=== PATIENT | female | born 1985 | race Caucasian/White ===

== ENCOUNTER 2017-01-28 06:25 | Inpatient (IN) | payer BC, OTHER ==
[2017-01-28] VITALS (48 sets, daily range): BP systolic 90–133; BP diastolic 43–79; PULSE 71–138; RESP 16–18; TEMP 97.8–98.2
[~2017-01-28] VITALS: Ht 152.4 cm; Wt 78.0 kg
[~2017-01-28 06:25] MED LIST: DARV PO; PREN0.01 PO
[2017-01-28] MEDS ORDERED: ONDANSETRON HCL 4 MG/2 ML VIAL IV PUSH PRN (07:45)
[2017-01-28] MEDS ORDERED: CITRIC ACID-SODIUM CITRATE LIQ 30 ML UDC PO SCH (07:45)
[2017-01-28] MEDS ORDERED: SODIUM CHLORID 0.9% 500 ML INJ 500 ML IV PRN (07:45)
[2017-01-28] MEDS ORDERED: MINERAL OIL 10 ML VIAL TOPICAL PRN (07:45)
[2017-01-28] MEDS ORDERED: LIDOCAINE HCL 1% 50 ML VIAL INFIL PRN (07:45)
[2017-01-28] MEDS ORDERED: LACTATED RINGER'S 1000 ML INJ 1,000 ML IV PRN (07:45)
[2017-01-28] MEDS ORDERED: LIDOCAINE HCL 1% 50 ML VIAL I-DERMAL PRN (07:45)
[2017-01-28] MEDS: LACTATED RINGER'S 1000 ML INJ 1,000 ML IV SCH ×2 (07:45→15:45)
--- NOTE | 2017-01-28 07:45 | PD ---
HPI Chief Complaint LOF Date Seen: Jan 28, 2017 Time Seen: 07:37 Travel History International Travel<30 Days: No Contact w/Intl Traveler<30Days: No Known Affected Area: No History of Present Illness HPI Pt is a @ 39.3wks. She has PNC with [facility]. She presented to triage this morning reporting SROM overnight. She continues to have leaking. No VB or ctx. +FM. She denies any complications this . She was /-3 in clinic most recently. Para: 1 : 3 History Past Medical History Narrative Medical asthma Obstetric History Obstetric History SABx1 SVDx1 Past Surgical History Narrative Surgical wisdom teeth extraction (general ANES) Family History Narrative Family History father had melanoma Social History Alcohol Use: No Tobacco Use: No Substance Abuse: No Allergies-Medications (Allergen,Severity, Reaction): Coded Allergies: No Known Allergies (Verified , 04/16/08) Home Meds Reported Medications Multivit/Min/Fol Ac/Iron/Pren ( Vit ( Plus)) 27 Mg Iron-1 Mg Tab , 1 TAB PO DAILY, #30 0 Refills 04/16/08 Discontinued Reported Medications Propoxyphene-N/Acetaminophen (Darvocet-N 100) Tab, 1 TAB PO Q4HPRN, #20 0 Refills FOR PAIN 04/19/08 Review of Systems Except as stated in HPI: all other systems reviewed are Neg Physical Exam Narrative GENERAL: Well-nourished, well-developed patient. SKIN: Warm and dry. HEAD: Normocephalic and atraumatic. EYES: No scleral icterus. No injection or drainage. ENT: No nasal drainage noted. Mucous membranes pink. Airway patent. ABDOMEN/GI: Abdomen soft, non-tender, gravid EXTREMITIES: No cyanosis or edema. BACK: Nontender without obvious deformity. No CVA tenderness. NEUROLOGICAL: Awake and alert. Motor and sensory grossly within normal limits. CVX: 2-3/60/-2 FHT: 135, +accels, no decels, moderate variability, reactive TOCO: quiet Data Data Vital Signs Reviewed: Yes Orders Orders Vital Signs (Adult) .ON ADMISSION (01/28/17 07:34) ^ Labor Status (01/28/17 07:34) ^ Non Stress Test (01/28/17 07:34) Pamg-1 Test .ONCE (01/28/17 07:34) Group B Strep: Negative MDM Plan PROM: -- admit to L&D -- pitocin augmentation -- FHT cat 1 -- anticipate -- GBS neg Dr. Wilson (neurosurgical nurse practitioner) notified of pt status and agrees with POC. Courtesy orders placed. She will assume care of the pt. Diagnosis Diagnosis: Primary Impression: Additional Impressions: 39 weeks gestation of PROM (premature rupture of membranes) Asthma Poppy Oliva MD Jan 28, 2017 07:45
[2017-01-28] MEDS ORDERED: SODIUM CHLOR 0.9% 1000 ML INJ 1,000 ML IV PRN (08:05)
[2017-01-28 08:59] LABS: AUTOMATED NEUTROPHIL # 9.5 TH/MM3 (1.8-7.7); BASOPHIL % 0.2 % (0.0-2.0); EOSINOPHIL % 0.1 % (0.0-4.0); HEMO FLAGS DIFF FINAL; LYMPHOCYTE # 2.4 TH/MM3 (1.0-4.8); MEAN CELL VOLUME 86.9 FL (80.0-100.0); MEAN CORPUSCULAR HEMOGLOBIN 29.7 PG (27.0-34.0); MEAN CORPUSCULAR HGB CONC 34.2 % (32.0-36.0); NEUT % 74.7 % (16.0-70.0); PLATELET COUNT 232 TH/MM3 (150-450); RED BLOOD COUNT 4.26 MIL/MM3 (4.00-5.30); RED CELL DISTRIBUTION WIDTH 13.5 % (11.6-17.2); WHITE BLOOD COUNT 12.7 TH/MM3 (4.0-11.0)
[2017-01-28] MEDS ORDERED: OXYTOCIN 30 UNITS-500ML PREMIX 500 ML IV SCH ×2 (09:00→17:30)
[2017-01-28] MEDS ORDERED: OXYTOCIN 30 UNITS-500ML PREMIX 500 ML IV ONE (09:00)
[2017-01-28 12:56] LABS: BLOOD, URINE TRACE (NEG); GLUCOSE,URINE NEG (NEG); KETONE, URINE TRACE mg/dL (NEG); MUCUS URINE FEW /lpf (OCC); NITRITE,URINE NEG (NEG); SQUAMOUS EPITHELIAL CELL URINE 10 /hpf (0-5); URINE COLOR YELLOW (YELLW/STRAW)
[2017-01-28 12:59] LABS: COMMENT (UR) CULT NOT INDICATED; CULTURE IF INDICATED CULT NOT INDICATED
[2017-01-28] MEDS ORDERED: fentaNYL 2MCG-BUPIV 0.125% INJ 100 ML ONE (13:56)
[2017-01-28] MEDS ORDERED: ePHEDrine/NS 25 MG/5 ML SYR IV PUSH PRN (14:45)
[2017-01-28] MEDS ORDERED: DO NOT ADMINISTER ANTICOAGULANTS PRN (15:00)
[2017-01-28] MEDS ORDERED: fentaNYL 2MCG-BUPIV 0.125% 100 ML EPIDURAL SCH (15:00)
[2017-01-28] MEDS ORDERED: NO SYSTEM NARCOTICS PRN (15:00)
[2017-01-28] MEDS ORDERED: MEASLES, MUMPS, RUBELLA VACCINE 0.5 ML VIAL SQ ONE (16:00)
[2017-01-28] MEDS ORDERED: DIPHTH/TETANUS/ACEL PERTUSSIS (BOOSTER) 0.5 ML VIAL/PFS IM ONE (16:00)
--- NOTE | 2017-01-28 17:21 | PD.OB.DELI ---
Weeks gestation: 39 Gest age assessed date: Jan 28, 2017 Gest age assessed time: 00:00 Pt started active labor?: Yes Medical induction of labor?: No Artificial rupture of membrane: No Anesthesia: Epidural Episiotomy: None Vaginal Delivery: Normal Presentation: Occiput anterior Nuchal Cord: None Shoulder Dystocia: Katja maneuver done : Male Delivery date: Jan 28, 2017 Delivery time: 17:00 One Minute : 9 Five Minute : 9 Placenta: Spontaneous delivery Laceration: Vaginal laceration, 1 deg Repair: Vicryl interrupted Estimated blood loss: @250cc Arash Kendrick MD Jan 28, 2017 17:21
[2017-01-28] MEDS ORDERED: BENZOCAINE 20% TOPICAL SPRAY 60 ML CAN TOPICAL PRN (17:30)
[2017-01-28] MEDS ORDERED: DOCUSATE SODIUM 50 MG/SENNA 8.6 MG TAB PO PRN (17:30)
[2017-01-28] MEDS ORDERED: OXYTOCIN 10 UNIT/ML AMP XX PRN (17:30)
[2017-01-28] MEDS ORDERED: ALUMINUM/MAGNESIUM/SIMETH 30 ML CUP PO PRN (17:30)
[2017-01-28] MEDS ORDERED: ACETAMINOPHEN 325 MG TAB PO PRN (17:30)
[2017-01-28] MEDS ORDERED: SODIUM CHLORIDE 0.9% FLUSH 10 ML FLUSH IV FLUSH PRN (17:30)
[2017-01-28] MEDS ORDERED: WITCH HAZEL 50%/GLYCERIN 12.5% 40 PAD JAR TOPICAL PRN (17:30)
[2017-01-28] MEDS ORDERED: ZOLPIDEM TARTRATE 5 MG TAB PO PRN (17:30)
[2017-01-28] MEDS ORDERED: ONDANSETRON ODT 4 MG TAB PO PRN (17:30)
[2017-01-28] MEDS ORDERED: SODIUM CHLORIDE 0.9% FLUSH 10 ML FLUSH IV FLUSH SCH (21:00)
[2017-01-29] MEDS: IBUPROFEN 600 MG TAB PO PRN ×3 (02:54→21:51)
[2017-01-29] MEDS ORDERED: IBUP-232 PO (06:42)
[2017-01-29] MEDS ORDERED: SENN1TAB PO (06:42)
--- NOTE | 2017-01-29 06:43 | HHI.DCPOC ---
Discharge Care Plan Diagnosis: (1) (spontaneous vaginal delivery) Your Health Problems Are: Vaginal delivery Report Symptoms to Your Doctor -Temperature above 100.5 degrees -Redness, of incision or excessive or foul smelling drainage -Unusual pain or calf pain -Increased vaginal bleeding -Painful or difficulty urinating -Feelings of extreme sadness or anxiety after 2 weeks Goals to Promote Your Health * To prevent worsening of your condition and complications * To maintain your health at the optimal level Directions to Meet Your Goals Take your medications as prescribed Follow your dietary instruction Follow activity as directed Ensure plenty of rest for recovery Drink fluids for hydration Keep your appointments as scheduled Take your immunizations and boosters as scheduled If your symptoms worsen call your PCP, if no PCP go to Urgent Care Center or Emergency Room Smoking is Dangerous to Your Health. Avoid second hand smoke Call the 24-hour crisis hotline for domestic abuse at Lelia Wilson MD Jan 29, 2017 06:43
--- NOTE | 2017-01-29 06:51 | HHI.OB ---
Subjective Post Day: 1 Remarks s/p uncomplicated of FT male Objective Vitals/I&O Vital Signs Date Time Temp Pulse Resp B/P (MAP) Pulse Ox O2 Delivery O2 Flow Rate FiO2 01/29/17 03:54 18 01/28/17 20:50 97.9 18 01/28/17 20:50 83 110/63 (79) 01/28/17 19:01 95 91/67 (75) 01/28/17 18:45 92 118/69 (85) 01/28/17 18:39 18 01/28/17 18:30 94 121/75 (90) 01/28/17 18:30 18 01/28/17 18:15 92 103/66 (78) 01/28/17 18:14 16 01/28/17 18:00 138 124/75 (91) 01/28/17 17:46 16 01/28/17 17:45 87 133/66 (88) 01/28/17 17:35 97.8 18 01/28/17 17:31 90 124/65 (84) 01/28/17 17:00 87 108/64 (79) 01/28/17 16:30 81 123/75 (91) 01/28/17 16:00 79 106/63 (77) 01/28/17 15:39 97.9 18 01/28/17 15:37 78 99/60 (73) 01/28/17 15:35 79 95/51 (66) 01/28/17 15:30 85 102/55 (71) 01/28/17 15:25 72 01/28/17 15:20 80 101/50 (67) 01/28/17 15:15 76 104/79 (87) 01/28/17 15:10 133 103/76 (85) 01/28/17 15:06 84 116/65 (82) 01/28/17 15:00 75 112/59 (76) 01/28/17 14:55 85 101/67 (78) 01/28/17 14:50 87 114/64 (81) 01/28/17 14:45 90 120/72 (88) 01/28/17 14:42 16 01/28/17 14:40 88 108/66 (80) 01/28/17 14:37 83 99/54 (69) 01/28/17 14:35 93 90/43 (59) 01/28/17 14:30 91 101/51 (68) 01/28/17 14:25 90 106/59 (75) 01/28/17 14:20 87 01/28/17 14:20 86 117/65 (82) 01/28/17 14:18 83 111/61 (78) 01/28/17 14:17 87 112/66 (81) 01/28/17 14:15 91 01/28/17 14:10 84 01/28/17 14:08 77 118/75 (89) 01/28/17 13:34 82 115/65 (82) 01/28/17 12:30 97.8 01/28/17 12:29 78 108/69 (82) 01/28/17 10:30 18 01/28/17 10:29 73 108/63 (78) 01/28/17 09:49 71 109/77 (88) 01/28/17 09:49 18 01/28/17 09:48 98.2 01/28/17 09:17 78 111/64 (80) Objective Remarks GENERAL: Well-nourished, well-developed patient. CARDIOVASCULAR: Regular rate and rhythm without murmurs, gallops, or rubs. RESPIRATORY: Breath sounds equal bilaterally. No accessory muscle use. ABDOMEN/GI: Abdomen soft, non-tender. Fundus: Firm, non-tender at umbilicus. GENITOURINARY: Light bleeding. EXTREMITIES: No cyanosis or edema, non-tender, without signs of DVT. Medications and IVs Current Medications Medications (Trade) Dose Ordered Sig/Tracy Route Start Time Stop Time Status Last Admin Lactated Ringer's 1,000 ml @ 125 mls/hr Q8H IV 01/28/17 07:45 01/28/17 07:45 Lactated Ringer's 1,000 ml @ 3,000 mls/hr Q20M PRN IV 01/28/17 07:45 Sodium Chloride 500 ml @ 1,000 mls/hr ONCE PRN IV 01/28/17 07:45 01/29/17 07:44 Sodium Chloride 1,000 ml @ 100 mls/hr Q10H PRN IV 01/28/17 08:05 (Xylocaine 1% Inj (50 ml)) 0.1 ml UNSCH X1 PRN I-DERMAL 01/28/17 07:45 01/31/17 07:44 (Bicitra Liq) 30 ml SONAR TECHNICIAN PO 01/28/17 07:45 02/01/17 07:44 (Zofran Inj) 4 mg Q6H PRN IV PUSH 01/28/17 07:45 (fentaNYL INJ) 50 mcg Q1H PRN IV PUSH 01/28/17 07:45 (fentaNYL INJ) 100 mcg Q1H PRN IV PUSH 01/28/17 07:45 (Xylocaine 1% Inj (50 ml)) 10 ml UNSCH X1 PRN INFIL 01/28/17 07:45 01/30/17 07:44 (Muri-Lube Oil) 10 ml UNSCH PRN TOPICAL 01/28/17 07:45 Oxytocin 500 ml @ 0 mls/hr TITRATE IV 01/28/17 09:00 01/28/17 09:12 Miscellaneous Information No systemic narcotics to be given except... UNSCH PRN .XX 01/28/17 15:00 01/29/17 14:59 Miscellaneous Information DO NOT ADMINISTER ANY ANTICOAGUL... UNSCH PRN .XX 01/28/17 15:00 01/29/17 14:59 Fentanyl/ Bupivacaine HCl 100 ml @ 0 mls/hr TITRATE EPIDURAL 01/28/17 15:00 (ePHEDrine/NS 25 MG/5 ML SYR) 10 mg UNSCH PRN IV PUSH 01/28/17 14:45 01/29/17 14:44 (Pitocin Inj) 20 units UNSCH X1 PRN XX 01/28/17 17:30 01/29/17 17:29 (NS Flush) 2 ml BID IV FLUSH 01/28/17 21:00 (NS Flush) 2 ml UNSCH PRN IV FLUSH 01/28/17 17:30 (Tylenol) 650 mg Q4H PRN PO 01/28/17 17:30 (Motrin) 600 mg Q6H PRN PO 01/28/17 17:30 01/29/17 02:54 (Americaine 20% Top Spr) 1 spray Q4H PRN TOPICAL 01/28/17 17:30 01/29/17 02:54 (Tucks Pads) 1 applic QID PRN TOPICAL 01/28/17 17:30 01/29/17 02:54 (Ivania-Colace) 2 tab Q12H PRN PO 01/28/17 17:30 (Ambien) 5 mg HS PRN PO 01/28/17 17:30 (Mag-Al Plus Susp Liq) 15 ml Q8H PRN PO 01/28/17 17:30 (Zofran Odt) 4 mg Q6H PRN PO 01/28/17 17:30 Assessment/Plan Problem List: (1) (spontaneous vaginal delivery) ICD Codes: O80 - Encounter for full-term uncomplicated delivery Status: Acute Assessment and Plan PPD#1 routine supportive care d/c planning for tmrw pt plans to pay for circ today, desires prior to discharge Discharge Planning 01/30/17 Lelia Wilson MD Jan 29, 2017 06:51
[2017-01-29 08:32] VITALS: BP 104/71; PULSE 76; RESP 16; TEMP 97.8
[2017-01-29] MEDS: LACTATED RINGER'S 1000 ML INJ 1,000 ML IV SCH (15:45)
[2017-01-29 21:00] VITALS: BP 114/69; PULSE 81; RESP 18; TEMP 98.7
[2017-01-30 08:00] VITALS: BP 105/66; PULSE 76; RESP 16; TEMP 97.5
--- NOTE | 2017-01-30 08:32 | HHI.OB ---
Subjective Post Day: 2 Remarks parents doing well not first child desire circumcision Objective Vitals/I&O Vital Signs Date Time Temp Pulse Resp B/P (MAP) Pulse Ox O2 Delivery O2 Flow Rate FiO2 01/29/17 22:51 18 01/29/17 21:00 98.7 81 18 114/69 (84) 01/29/17 08:32 97.8 76 16 104/71 (82) Objective Remarks GENERAL: Well-nourished, well-developed patient. CARDIOVASCULAR: Regular rate and rhythm without murmurs, gallops, or rubs. RESPIRATORY: Breath sounds equal bilaterally. No accessory muscle use. ABDOMEN/GI: Abdomen soft, non-tender. Fundus: Firm, non-tender at umbilicus. GENITOURINARY: Light bleeding. EXTREMITIES: No cyanosis or edema, non-tender, without signs of DVT. Medications and IVs Current Medications Medications (Trade) Dose Ordered Sig/Tracy Route Start Time Stop Time Status Last Admin Lactated Ringer's 1,000 ml @ 125 mls/hr Q8H IV 01/28/17 07:45 01/28/17 07:45 Lactated Ringer's 1,000 ml @ 3,000 mls/hr Q20M PRN IV 01/28/17 07:45 Sodium Chloride 1,000 ml @ 100 mls/hr Q10H PRN IV 01/28/17 08:05 (Xylocaine 1% Inj (50 ml)) 0.1 ml UNSCH X1 PRN I-DERMAL 01/28/17 07:45 01/31/17 07:44 (Bicitra Liq) 30 ml MANAGER COLLECTION PO 01/28/17 07:45 02/01/17 07:44 (Zofran Inj) 4 mg Q6H PRN IV PUSH 01/28/17 07:45 (fentaNYL INJ) 50 mcg Q1H PRN IV PUSH 01/28/17 07:45 (fentaNYL INJ) 100 mcg Q1H PRN IV PUSH 01/28/17 07:45 (Muri-Lube Oil) 10 ml UNSCH PRN TOPICAL 01/28/17 07:45 Oxytocin 500 ml @ 0 mls/hr TITRATE IV 01/28/17 09:00 01/28/17 09:12 Fentanyl/ Bupivacaine HCl 100 ml @ 0 mls/hr TITRATE EPIDURAL 01/28/17 15:00 (NS Flush) 2 ml BID IV FLUSH 01/28/17 21:00 (NS Flush) 2 ml UNSCH PRN IV FLUSH 01/28/17 17:30 (Tylenol) 650 mg Q4H PRN PO 01/28/17 17:30 (Motrin) 600 mg Q6H PRN PO 01/28/17 17:30 01/29/17 21:51 (Americaine 20% Top Spr) 1 spray Q4H PRN TOPICAL 01/28/17 17:30 01/29/17 02:54 (Tucks Pads) 1 applic QID PRN TOPICAL 01/28/17 17:30 01/29/17 02:54 (Ivania-Colace) 2 tab Q12H PRN PO 01/28/17 17:30 01/29/17 21:50 (Ambien) 5 mg HS PRN PO 01/28/17 17:30 (Mag-Al Plus Susp Liq) 15 ml Q8H PRN PO 01/28/17 17:30 (Zofran Odt) 4 mg Q6H PRN PO 01/28/17 17:30 Assessment/Plan Problem List: (1) (spontaneous vaginal delivery) ICD Codes: O80 - Encounter for full-term uncomplicated delivery Status: Acute Assessment and Plan PPD#1 routine supportive care d/c planning for tmrw pt plans to pay for circ today, desires prior to discharge PPD2 nursing well no issues counseled on circumcision home today RTO 6 weeks or prn Discharge Planning 01/30/17 Lucrecia Coleman MD Jan 30, 2017 08:32
--- NOTE | 2017-01-30 08:35 | HHI.DCPOC ---
Discharge Care Plan Report Symptoms to Your Doctor -Temperature above 100.5 degrees -Redness, of incision or excessive or foul smelling drainage -Unusual pain or calf pain -Increased vaginal bleeding -Painful or difficulty urinating -Feelings of extreme sadness or anxiety after 2 weeks Goals to Promote Your Health * To prevent worsening of your condition and complications * To maintain your health at the optimal level Directions to Meet Your Goals Take your medications as prescribed Follow your dietary instruction Follow activity as directed Ensure plenty of rest for recovery Drink fluids for hydration Keep your appointments as scheduled Take your immunizations and boosters as scheduled If your symptoms worsen call your PCP, if no PCP go to Urgent Care Center or Emergency Room Smoking is Dangerous to Your Health. Avoid second hand smoke Call the 24-hour crisis hotline for domestic abuse at Lucrecia Coleman MD Jan 30, 2017 08:35
[2017-01-30] MEDS ORDERED: INFLUENZA VIRUS VACCINE (QUADRIVALENT) 0.5 ML SYR IM ONE (10:30)
== END 2017-01-30 11:35 | disposition home or self-care (01) | DRG 775 ==
LOC: HOBED 06:25 → H2EA 07:46 → H1EA 19:38
PROVIDERS: ADMIT Obstetrics & Gynecology; ATTEND Obstetrics & Gynecology
PROC: 10E0XZZ Delivery of Products of Conception, External Approach (ICD-10-PCS; principal; 2017-01-28)
PROC: 0HQ9XZZ Repair Perineum Skin, External Approach (ICD-10-PCS; 2017-01-28)
DX: O42.02 Full-term premature rupture of membranes, onset of labor within 24 hours of rupture (principal); O66.0 Obstructed labor due to shoulder dystocia; O70.0 First degree perineal laceration during delivery; Z37.0 Single live birth; Z3A.39 39 weeks gestation of pregnancy; Z23 Encounter for immunization
CPT/HCPCS: 81001; 84112; 85025; 86900; 86901; 90686; 90715; J2590; J7120; Q2038